=== PATIENT | female | born 2000 | race African-American/Black ===

== ENCOUNTER 2020-06-13 18:09 | Emergency (ER) | payer MEDICAID, OTHER ==
[~2020-06-13] VITALS: Ht 162.6 cm; Wt 67.6 kg
[2020-06-13 18:18] VITALS: BP 149/88
[2020-06-13 19:20] LABS: Urine Bacteria NONE SEEN /hpf (None Seen); Urine Blood 3+ /uL (Negative); Urine Mucus FEW (None Seen); Urine Specific Gravity 1.009 (1.001-1.035); Urine WBC 16 /hpf (0 - 5)
[2020-06-13 20:32] LABS: Basophils # (auto) 0.1 10 ^3/uL (0-0.2); Eosinophils # (auto) 0.2 10 ^3/uL (0-0.8); Hematocrit 32.8 % (36.0-46.0); Monocytes # (auto) 0.6 10 ^3/uL (0-1.3)
[2020-06-13 20:35] LABS: Eosinophils % (auto) 3.1 % (0.0-7.0); Hemoglobin 10.5 g/dL (12.2-16.2); Lymphocytes # (auto) 2.5 10 ^3/uL (0.4-5.4); Lymphocytes % (auto) 39.6 % (10.0-50.0); Mean Corpuscular Hemoglobin 19.7 pg (28.0-32.0); Mean Corpuscular Volume 61.6 fL (80.0-100.0); Monocytes % (auto) 9.7 % (0.0-12.0); Neutrophils % (auto) 46.6 % (37.0-80.0); Platelet Count (auto) 361 10^3/uL (140-450); Red Blood Cells 5.33 10^6/uL (4.0-5.20); Red Cell Distribution Width 21.5 % (11.8-14.3); White Blood Cell 6.4 10^3/uL (4.4-10.8)
[2020-06-13 20:50] LABS: Albumin 3.8 g/dL (3.4-5.0); Calcium 9.3 mg/dL (8.5-10.1); Potassium 3.8 mmol/L (3.5-5.1)
[2020-06-13 20:53] LABS: BUN/Creatinine Ratio 9.5
[2020-06-13 20:55] LABS: Bilirubin, Total 0.2 mg/dL (0.2-1.0); Total Protein 8.3 g/dL (6.4-8.2)
[2020-06-13 21:45] LABS: Alcohol, Urine < 3.0 mg/dL (0-10); Amphetamine Screen, Urine NEGATIVE (NEGATIVE); Barbiturate Scree,Urine NEGATIVE (NEGATIVE); Benzodiazephine Screen, Urine NEGATIVE (NEGATIVE); Cannabinoid Screen, Urine NEGATIVE (NEGATIVE); Cocaine Screen, Urine NEGATIVE (NEGATIVE); Opiate Scree,Urine NEGATIVE (NEGATIVE); Phencyclidine Screen, Urine NEGATIVE (NEGATIVE)
[2020-06-13 22:21] LABS: Amylase 57 U/L (25-115); Lipase 143 U/L (73-393)
== END 2020-06-14 02:28 | disposition home or self-care (01) ==
LOC: ER 18:11
DX: N83.8 Other noninflammatory disorders of ovary, fallopian tube and broad ligament (principal); D64.9 Anemia, unspecified; Z88.1 Allergy status to other antibiotic agents
CPT/HCPCS: 36415; 74176; 76830; 76856; 80053; 80307; 81001; 81025; 82150; 83690; 84702; 85025

== ENCOUNTER 2022-04-06 19:25 | Emergency (ER) | payer SELFPAY ==
[~2022-04-06] VITALS: Ht 165.1 cm; Wt 80.8 kg
[2022-04-06 19:33] VITALS: BP 134/75
[2022-04-06 20:11] LABS: Urine Bacteria NONE SEEN /hpf (None Seen); Urine Blood Negative /uL (Negative); Urine Specific Gravity 1.019 (1.001-1.035); Urine WBC 1 /hpf (0 - 5)
== END 2022-04-06 23:40 | disposition left against medical advice (07) ==
LOC: ER 19:25
DX: O26.891 Other specified pregnancy related conditions, first trimester (principal); R10.30 Lower abdominal pain, unspecified; M54.9 Dorsalgia, unspecified; Z3A.01 Less than 8 weeks gestation of pregnancy
CPT/HCPCS: 81001; 81025